=== PATIENT | female | born 1990 | race Caucasian/White ===

== ENCOUNTER 2016-09-13 03:45 | Inpatient (IN) | payer OTHER ==
[2016-09-13] VITALS (36 sets, daily range): BP systolic 97–194; BP diastolic 51–133
[~2016-09-13] VITALS: Ht 157.5 cm; Wt 80.0 kg
[2016-09-13] MEDS ORDERED: PRENTAB9 PO (03:48)
[2016-09-13 04:59] LABS: MEAN CORPUSCULAR HEMOGLOBIN 26.4 pg (27.0-33.0); MEAN CORPUSCULAR HGB CONC 31.5 g/dl (32.0-36.5); RED CELL DISTRIBUTION WIDTH 14.4 % (11.5-14.5); WHITE BLOOD COUNT 7.6 K/mm3 (4.0-10.0)
[2016-09-13] MEDS ORDERED: OXYTOCIN DRIP 30 UNITS in APPROPRIATE DILUENT 1 EA IV SCH ×2 (07:00→14:07)
[2016-09-13] MEDS: LR 1,000 ML IV SCH ×2 (07:58→12:26)
[2016-09-13] MEDS ORDERED: FENTANYL 2MCG/ML ROPIVACAINE 0.2% NACL 250 ML CADD As Ordered ONE (09:23)
[2016-09-13] MEDS ORDERED: ONDANSETRON 4MG/2ML VIAL (J2405) IV PRN (10:45)
[2016-09-13] MEDS ORDERED: FENTANYL/ROPIVACAINE/NACL CADD 250 ML EPIDURAL SCH (10:45)
[2016-09-13] MEDS ORDERED: NALOXONE INJ 0.4 MG/1 ML VIAL (J2310) IV PRN (10:45)
[2016-09-13] MEDS ORDERED: diphenhydrAMINE INJ 50MG/ML VIAL (J1200) IV PRN (10:45)
[2016-09-13] MEDS ORDERED: ePHEDrine SULFATE 25 MG/5 ML(5MG/ML) SYRINGE IV PRN (10:45)
[2016-09-13] MEDS ORDERED: LACTATED RINGER'S 1000 ML IV PRN (10:45)
[2016-09-13] MEDS ORDERED: EPIDURAL COMMENT XX SCH (10:45)
[2016-09-13] MEDS ORDERED: EPIDURAL/PCA KEYS XX PRN (10:45)
[2016-09-13] MEDS ORDERED: REFRIGERATOR IV KEYS XX PRN (10:45)
--- NOTE | 2016-09-13 12:19 | IPNPDOC ---
Text Note Date of Service The patient was seen on 09/13/16. NOTE 26yo w/SIUP at 38w6d presented with SROM this morning, SCE . Received epidural and now comfortable. On pitocin at 6mu. Cat I FHRT. SCE now . Progressing well. Anticipate , safe to proceed. Dr. Caroline Monaco MD [place] JIMMY VS,Osbaldo, I+O VS, Osbaldo, I+O Laboratory Tests 09/13/16 04:45 Red Blood Count 3.91 L, Mean Corpuscular Volume 84.0, Mean Corpuscular Hemoglobin 26.4 L, Mean Corpuscular Hemoglobin Concent 31.5 L, Red Cell Distribution Width 14.4 Vital Signs Date Time Temp Pulse Resp B/P Pulse Ox O2 Delivery O2 Flow Rate FiO2 09/13/16 10:57 75, 72 18 105/58 09/13/16 10:41 98.3 CAROLINE MONACO MD Sep 13, 2016 12:19
[2016-09-13] MEDS ORDERED: DIBUCAINE 1% OINTMENT 30GM TOP PRN (14:15)
[2016-09-13] MEDS ORDERED: RHOGAM 300 MCG (1500 IU) INJ (J2790) IM SCH (14:15)
[2016-09-13] MEDS ORDERED: MEASLES,MUMPS,RUBELLA VACCINE INJ (MMR-II) (90707) SC SCH (14:15)
--- NOTE | 2016-09-13 14:16 | DNPDOC ---
Delivery Note Delivery Note DATE OF DELIVERY: Sep 13, 2016 at 1331 PREDELIVERY DIAGNOSIS: 38w6d gestation with SROM POST DELIVERY DIAGNOSIS: Delivered PROCEDURE: Spontaneous vaginal delivery PAPER SAMPLE CLERK: Dr. Caroline Monaco MD ANESTHESIA: epidural ESTIMATED BLOOD LOSS: 250 mL. FINDINGS: 8 pound 12 ounce male infant, Score 8/9, loose nuchal cord times one. DELIVERY SUMMARY: Ree is a 26yo G2 now P2002 who was admitted to L&D for SROM. She had an uncomplicated of a viable male at 1331 on [id number] at 38w6d. Head delivered ROP. One loose nuchal cord manually reduced. Left anterior shoulder delivered followed by posterior shoulder and corpus. Cord clamped x2 and cut by FOB. mouth/nares bulb suctioned. Spontaneous cry noted. Baby placed on mother's abdomen. Apgars 8/9, weight 3956g or [id number]. No indication to obtain cord blood. With gentle downward guidance and suprapubic pressure, placenta delivered spontaneously and intact with a centrally inserted cord. Fundal massage until both uterine fundus and lower uterine segment firm; fundus at U-1. Pitocin 30 units IV bolus administered. Inspection of perineum and vaginal wall revealed small 2MLL closed with 3.0 vicryl suture with good hemostasis. Mom and in stable condition. MD Maria Guadalupe Ward KATRINA D. MD Sep 13, 2016 14:16
[2016-09-13] MEDS ORDERED: miSOPROStol 200 MCG TAB (S0191) PR ONE (14:20)
[2016-09-13] MEDS: IBUPROFEN 800 MG TAB PO PRN (18:38)
[2016-09-13] MEDS: ACETAMINOPHEN 500 MG TAB PO PRN (20:14)
[2016-09-13] MEDS: DOCUSATE SODIUM 100 MG CAP PO PRN (20:17)
[2016-09-14] MEDS: IBUPROFEN 800 MG TAB PO PRN ×3 (02:05→20:24)
[2016-09-14 05:31] VITALS: BP 127/78
--- NOTE | 2016-09-14 07:33 | IPNPDOC ---
Text Note Date of Service The patient was seen on 09/14/16. NOTE Ree is a 26yo doing well on PPD 2 s/p uncomplicated at 38w6d after presenting with SROM. She is . Lochia normal, spontaneously voiding and ambulating without difficulty. Tolerating regular diet. Denies f/c/n /v/SOB/CP/PEREZ/abdominal pain. Vitals wnl, afebrile Exam: General: WDWN, NAD, resting comfortably Cardiac: S1S2 present, no murmur Lungs: CTAB without wheeze/crackles Abdomen: soft, NTTP, fundus firm u-2cm Extremities: no tenderness of calves bilaterally Assessment: Ree is a 26yo doing well on PPD 2 s/p uncomplicated at 38w6d after presenting with SROM. Meeting all milestones. No e/o infection, hemodynamically stable. Plan: -routine care, likely discharge to home tomorrow -regular diet, encourage breast feeding and ambulation -desires minipill for contraception Dr. Nehemiah Monaco MD [place] JIMMY SEGURA,Osbaldo, I+O VSOsbaldo, I+O Vital Signs Date Time Temp Pulse Resp B/P Pulse Ox O2 Delivery O2 Flow Rate FiO2 09/14/16 05:31 98.0 69 16 127/78 I&O- Last 24 Hours up to 6 AM 09/14/16 06:00 Intake Total 726 ml Output Total 500 ml Balance 226 ml NEHEMIAH MONACO MD Sep 14, 2016 07:33
[2016-09-14] MEDS: PRENATAL VITAMIN TAB PO SCH (07:47)
[2016-09-14] MEDS: ACETAMINOPHEN 500 MG TAB PO PRN (12:10)
[2016-09-14 18:00] VITALS: BP 120/71
[2016-09-14] MEDS: DOCUSATE SODIUM 100 MG CAP PO PRN (20:22)
[2016-09-15 05:47] VITALS: BP 127/70
[2016-09-15] MEDS: IBUPROFEN 800 MG TAB PO PRN (07:31)
[2016-09-15] MEDS: PRENATAL VITAMIN TAB PO SCH (07:31)
[2016-09-15] MEDS ORDERED: ACET50TA PO (08:05)
[2016-09-15] MEDS ORDERED: COLA100C PO (08:05)
[2016-09-15] MEDS ORDERED: IBUP-1114 PO (08:05)
== END 2016-09-15 13:20 | disposition home or self-care (01) | DRG 775 ==
LOC: M LDO 03:45 → M LDI 04:15 → M OBS 16:27
PROVIDERS: ADMIT Advanced Practice Midwife; ATTEND Obstetrics & Gynecology
PROC: 10E0XZZ Delivery of Products of Conception, External Approach (ICD-10-PCS; principal; 2016-09-13)
PROC: 0KQM0ZZ Repair Perineum Muscle, Open Approach (ICD-10-PCS; 2016-09-13)
DX: O69.81X0 Labor and delivery complicated by cord around neck, without compression, not applicable or unspecified (principal); Z3A.38 38 weeks gestation of pregnancy; O70.1 Second degree perineal laceration during delivery; Z37.0 Single live birth